=== PATIENT | male | born 1960 | race Caucasian/White ===

== ENCOUNTER 2018-01-05 16:53 | Emergency (ER) | payer OTHER ==
[~2018-01-05] VITALS: Ht 172.7 cm; Wt 75.8 kg
[2018-01-05 17:58] LABS: BASOPHILS ABSOLUTE AUTO 0.07 K/mm3 (0.00-0.23); BASOPHILS PERCENT AUTO 1 % (0-2); EOSINOPHILS PERCENT AUTO 1 % (0-6); Hematocrit 44.4 % (37.0-53.0); Hemoglobin 14.5 g/dL (13.5-17.5); IMMATURE GRAN ABSOLUTE AUTO 0.03 K/mm3 (0.00-0.10); IMMATURE GRAN PERCENT AUTO 0 % (0-1); LYMPHOCYTES ABSOLUTE AUTO 2.51 K/mm3 (0.84-5.20); LYMPHOCYTES PERCENT AUTO 25 % (21-46); MONOCYTES ABSOLUTE AUTO 0.73 K/mm3 (0.16-1.47); MONOCYTES PERCENT AUTO 7 % (4-13); Mean Corpuscular HGB 28.7 pg (26.0-34.0); Mean Corpuscular HGB Conc 32.7 g/dL (31.5-36.5); Mean Corpuscular Volume 88 fL (80-100); Mean Platelet Volume 11.1 fL (9.1-12.4); NEUTROPHILS ABSOLUTE AUTO 6.51 K/mm3 (1.96-9.15); NEUTROPHILS PERCENT AUTO 66 % (41-73); Platelet Count 201 K/mm3 (150-400); RDW Coefficient Variation 12.6 % (11.7-14.2); RDW Standard Deviation 40.4 fL (35.1-46.3); Red Blood Cell Count 5.06 M/mm3 (4.30-5.90); White Blood Cell Count 9.95 K/mm3 (4.00-11.30)
[2018-01-05 18:21] LABS: Alanine Aminotransfer (ALT/SGP 24 U/L (12-78); Albumin, Blood 4.2 g/dL (3.4-5.0); Albumin/Globulin Ratio 1.2 (0.8-1.8); Alk Phos 105 U/L (50-136); Anion Gap 10 mmol/L (6-16); Aspartate Aminotrans (AST/SGOT 26 U/L (12-37); Blood Urea Nitrogen 12 mg/dL (8-24); Bun/Creatinine Ratio 16.6 (12.0-20.0); CO2, Blood 24 mmol/L (21-32); Calcium, Blood 8.7 mg/dL (8.5-10.1); Chloride, Blood 106 mmol/L (98-108); Creatinine, Blood 0.72 mg/dL (0.60-1.20); Globulin, Blood 3.6 g/dL (2.2-4.0); Glomerular Filtration Rate >60 (60-); Glucose, Blood 131 mg/dL (70-99); Potassium, Blood 3.2 mmol/L (3.5-5.5); Salicylate <1.7 mg/dL (2.8-20.0); Sodium, Blood 140 mmol/L (136-145); Thyroxine (T4) 11.4 ug/dL (4.5-12.1); Total Protein, Blood 7.8 g/dL (6.4-8.2)
[2018-01-05 18:32] LABS: Acetaminophen, Random < 3.0 ug/mL (10.0-30.0); Ethanol (Alcohol), Blood, Med <3 mg/dL
[2018-01-05 19:22] LABS: Source, Urine Clean Catch
[2018-01-05 19:28] LABS: Bilirubin, Urine Neg (Neg); Blood, Urine Neg (Neg); Glucose Qualitative, Urine Neg (Neg); Ketones, Urine Neg (Neg); Leukocyte Esterase, Urine Neg (Neg); Nitrite, Urine Neg (Neg); Protein, Urine Neg (Neg); Specific Gravity, Urine 1.015 (1.003-1.022); Urobilinogen, Urine NORM (Normal)
[2018-01-05 19:33] LABS: Appearance, Urine Clear (Clear); Color, Urine Yellow (P-Yellow)
[2018-01-05] MEDS ORDERED: RANI150 PO (19:33)
[2018-01-05] MEDS ORDERED: GEMF600 PO (19:33)
[2018-01-05] MEDS ORDERED: Venlafaxine HCl50 MG PO (19:33)
[2018-01-05 19:40] LABS: U Amphetamine Screen Not Detected; U Barbituate Screen Not Detected; U Benzodiazapine Screen Not Detected; U Buprenorphine Screen Not Detected; U Cannabinoids Screen DETECTED; U Cocaine Screen Not Detected; U Methadone Screen Not Detected; U Methamphetamine Screen Not Detected; U Opiates Screen Not Detected; U Oxycodone Screen Not Detected; U Phencyclidine Screen Not Detected; U Propoxyphene Screen Not Detected
== END 2018-01-05 21:30 | disposition home or self-care (01) ==
LOC: ER 16:53
PROVIDERS: Emergency Medicine
DX: R41.82 Altered mental status, unspecified (principal); F17.200 Nicotine dependence, unspecified, uncomplicated; Z88.8 Allergy status to other drugs, medicaments and biological substances; Z79.899 Other long term (current) drug therapy
CPT/HCPCS: 36415; 70450; 80053; 81003; 84436; 84443; 85025; 99284; G0480

== ENCOUNTER → 2024-12-23 | Outpatient (CLI) | payer OTHER ==
[~2024-12-23] MED LIST: ARIP10 PO; GEMF600 PO; LORA2 PO; Venlafaxine HCl50 MG PO; Zantac150 MG PO
== END | disposition home or self-care (01) ==
LOC: LAB SHORT 08:10 → LAB 08:10
DX: L57.0 Actinic keratosis (principal); D49.2 Neoplasm of unspecified behavior of bone, soft tissue, and skin
CPT/HCPCS: 88305

== ENCOUNTER 2025-06-27 01:39 | Observation (INO) | payer MEDICARE, OTHER ==
[2025-06-27] VITALS (15 sets, daily range): BP systolic 107–140; BP diastolic 68–91
[~2025-06-27] VITALS: Ht 172.7 cm; Wt 89.4 kg
[~2025-06-27 01:39] MED LIST changes: +Heparin Sodium,Porcine 5,000 UNIT/0.5 ML SDV SC ONE
[2025-06-27] MEDS ORDERED: Heparin Sodium 5000 Units/ML 1ML MDV IV ONE (01:50)
[2025-06-27] MEDS ORDERED: NS 1,000 ML IV ONE ×3 (02:02→02:21)
[2025-06-27] MEDS ORDERED: OMEP20ER PO (02:10)
[2025-06-27] MEDS ORDERED: NS 250 ML IV ONE (02:15)
[2025-06-27] MEDS ORDERED: Heparin Sodium 1000 Units/ML 10ML MDV ONE (02:15)
[2025-06-27 02:19] LABS: Anion Gap 9.0 mmol/L (3-11); Blood Urea Nitrogen 20.0 mg/dL (8-24); CO2, Blood 26.0 mmol/L (21-32); Calcium, Blood 9.1 mg/dL (8.5-10.1); Chloride, Blood 105.0 mmol/L (98-108); Creatinine, Blood 1.29 mg/dL (0.60-1.20); Glucose, Blood 126.0 mg/dL (70-99); Magnesium, Blood 2.5 mg/dL (1.6-2.4); Potassium, Blood 3.9 mmol/L (3.5-5.5); Sodium, Blood 136.0 mmol/L (136-145)
[2025-06-27] MEDS ORDERED: FentaNYL Citrate 50 MCG/ML 2 ML Injection ONE (02:21)
[2025-06-27] MEDS ORDERED: Midazolam HCl 1MG / ML 2ML Vial ONE (02:21)
[2025-06-27 02:25] LABS: BASOPHILS ABSOLUTE AUTO 0.11 K/mm3 (0.00-0.23); BASOPHILS PERCENT AUTO 1 % (0-2); EOSINOPHILS ABSOLUTE AUTO 0.37 K/mm3 (0.00-0.68); EOSINOPHILS PERCENT AUTO 3 % (0-6); Hematocrit 51.4 % (37.0-53.0); Hemoglobin 16.5 g/dL (13.5-17.5); IMMATURE GRAN ABSOLUTE AUTO 0.04 K/mm3 (0.00-0.10); IMMATURE GRAN PERCENT AUTO 0 % (0-1); LYMPHOCYTES ABSOLUTE AUTO 3.02 K/mm3 (0.84-5.20); LYMPHOCYTES PERCENT AUTO 24 % (21-46); MONOCYTES ABSOLUTE AUTO 1.17 K/mm3 (0.16-1.47); MONOCYTES PERCENT AUTO 9 % (4-13); Mean Corpuscular HGB Conc 32.1 g/dL (31.5-36.5); Mean Corpuscular Volume 87 fL (80-100); NEUTROPHILS ABSOLUTE AUTO 8.14 K/mm3 (1.96-9.15); NEUTROPHILS PERCENT AUTO 63 % (41-73); NRBC ABSOLUTE 0.00 K/mm3 (0.00-0.02); NRBC Auto 0.0 /100 WBC (0.0-0.2); Platelet Count 220 K/mm3 (150-400); RDW Coefficient Variation 14.3 % (11.7-14.2); RDW Standard Deviation 46.0 fL (35.1-46.3)
[2025-06-27] MEDS ORDERED: Phenylephrine HCl 100 MCG/ML-NS 10MLSYR (1MG/10ML) ONE (02:28)
[2025-06-27 03:53] LABS: BASOPHILS ABSOLUTE AUTO 0.07 K/mm3 (0.00-0.23); BASOPHILS PERCENT AUTO 1 % (0-2); EOSINOPHILS ABSOLUTE AUTO 0.14 K/mm3 (0.00-0.68); EOSINOPHILS PERCENT AUTO 1 % (0-6); Hematocrit 45.7 % (37.0-53.0); Hemoglobin 14.6 g/dL (13.5-17.5); IMMATURE GRAN ABSOLUTE AUTO 0.05 K/mm3 (0.00-0.10); IMMATURE GRAN PERCENT AUTO 0 % (0-1); LYMPHOCYTES ABSOLUTE AUTO 1.16 K/mm3 (0.84-5.20); LYMPHOCYTES PERCENT AUTO 10 % (21-46); MONOCYTES ABSOLUTE AUTO 0.73 K/mm3 (0.16-1.47); MONOCYTES PERCENT AUTO 6 % (4-13); Mean Corpuscular HGB Conc 31.9 g/dL (31.5-36.5); Mean Corpuscular Volume 87 fL (80-100); NEUTROPHILS ABSOLUTE AUTO 10.08 K/mm3 (1.96-9.15); NEUTROPHILS PERCENT AUTO 82 % (41-73); NRBC ABSOLUTE 0.00 K/mm3 (0.00-0.02); NRBC Auto 0.0 /100 WBC (0.0-0.2); Platelet Count 188 K/mm3 (150-400); RDW Coefficient Variation 14.2 % (11.7-14.2); RDW Standard Deviation 45.2 fL (35.1-46.3)
[2025-06-27] MEDS ORDERED: NS 1,000 ML IV SCH (04:00)
[2025-06-27 04:19] LABS: Magnesium, Blood 2.1 mg/dL (1.6-2.4); Thyroid Stimulating Hormone 3.75 uIU/mL (0.360-4.800)
[2025-06-27 04:20] LABS: Alanine Aminotransfer (ALT/SGP 20.0 U/L (12-78); Albumin, Blood 3.2 g/dL (3.4-5.0); Albumin/Globulin Ratio 1.1 (0.8-1.8); Anion Gap 9.0 mmol/L (3-11); Aspartate Aminotrans (AST/SGOT 21.0 U/L (12-37); Bilirubin, Total 0.6 mg/dL (0.1-1.0); Blood Urea Nitrogen 18.0 mg/dL (8-24); CO2, Blood 24.0 mmol/L (21-32); Calcium, Blood 7.9 mg/dL (8.5-10.1); Chloride, Blood 109.0 mmol/L (98-108); Creatinine, Blood 1.06 mg/dL (0.60-1.20); Globulin, Blood 2.8 g/dL (2.2-4.0); Glucose, Blood 102.0 mg/dL (70-99); Potassium, Blood 3.6 mmol/L (3.5-5.5); Sodium, Blood 138.0 mmol/L (136-145); Total Protein, Blood 6.0 g/dL (6.4-8.2)
[2025-06-27 04:24] LABS: CHOL/HDL RATIO 5.8; Cholesterol 191 mg/dL (50-200); HDL Cholesterol 33 mg/dL (>39); LDL/HDL RATIO 4.4; Low Density Lipoprotein Chol 146 mg/dL (0-110); Triglycerides 59 mg/dL (30-160); Very Low Density Lipoprot Chol 11 mg/dL (6-32)
[2025-06-27] MEDS ORDERED: Enoxaparin 40 MG/0.4 ML SYR SC SCH (09:00)
[2025-06-27] MEDS ORDERED: ASPI81CH PO (13:52)
[2025-06-27] MEDS ORDERED: METO25 PO (13:53)
[2025-06-27] MEDS ORDERED: CLOP75 PO (13:53)
[2025-06-27] MEDS ORDERED: ATOR40TA PO (13:53)
--- NOTE | 2025-06-27 14:41 | NUR ---
PT DISCHARGED WITH ALL BELONGINGS, PAPERWORK, AND VERBALISES UNDERSTANDING OF DISCHARGE ORDERS. MEDS FAXED TO PT [facility]ARM[facility]. ESCORTED TO [facility].
== END 2025-06-27 14:45 | disposition home or self-care (01) ==
LOC: ER 01:39 → ICUE 01:40 → ER 02:49 → ICUE 03:08
PROVIDERS: Internal Medicine Interventional Cardiology; Student in an Organized Health Care Education/Training Program; ADMIT Emergency Medicine
DX: I21.19 ST elevation (STEMI) myocardial infarction involving other coronary artery of inferior wall (principal); I25.10 Atherosclerotic heart disease of native coronary artery without angina pectoris; N18.2 Chronic kidney disease, stage 2 (mild); E78.5 Hyperlipidemia, unspecified; Z95.5 Presence of coronary angioplasty implant and graft; Z87.891 Personal history of nicotine dependence; Z79.02 Long term (current) use of antithrombotics/antiplatelets; Z79.82 Long term (current) use of aspirin; Z79.899 Other long term (current) drug therapy; Z88.8 Allergy status to other drugs, medicaments and biological substances
CPT/HCPCS: 36415; 71045; 76937; 80048; 80053; 80061; 83036; 83735; 84443; 84484; 85025; 93005; 93010; 93306; 93454; 94762; 96374; 99152; 99153; 99285-25; A9270; C1760; C1769; C1874; C1887; C1894; C9606; J0461; J1644; J1650; J2250; J2371; J3010; J3246; J7030; J7050; Q9967

== ENCOUNTER 2025-08-14 15:39 | Emergency (ER) | payer MEDICARE, OTHER ==
[~2025-08-14] VITALS: Ht 172.7 cm; Wt 70.3 kg
[~2025-08-14 15:39] MED LIST changes: +ASPI81CH PO; +ATOR40TA PO; +CLOP75 PO; -Heparin Sodium,Porcine 5,000 UNIT/0.5 ML SDV SC ONE; +METO25 PO; +OMEP20ER PO
[2025-08-14 17:36] VITALS: BP 145/96
== END 2025-08-14 17:36 | disposition home or self-care (01) ==
LOC: ER 15:39
DX: I73.9 Peripheral vascular disease, unspecified (principal); F17.210 Nicotine dependence, cigarettes, uncomplicated; Z88.8 Allergy status to other drugs, medicaments and biological substances; Z79.82 Long term (current) use of aspirin; Z79.899 Other long term (current) drug therapy
CPT/HCPCS: 93926; 93971; 99283-25

== ENCOUNTER 2025-09-26 08:57 | Day surgery (SDC) | payer MEDICARE, OTHER ==
[~2025-09-26] VITALS: Ht 172.7 cm; Wt 71.0 kg
[2025-09-26] VITALS (14 sets, daily range): BP systolic 122–181; BP diastolic 71–123
[~2025-09-26 08:57] MED LIST changes: +BUPR150ER PO; +Budeprion Xl300 MG PO; +EZET10 PO; +KLONOPIN0.5 M3 PO; +LOSA25 PO; +METO25ER PO; +NITR.4SL SL; +REPATHA SY140 MG/1 M SQ; +REXULTI1 MG PO; +VITAMIN D31250 MC2 PO
--- NOTE | 2025-09-26 10:26 | NUR ---
DR HINOJOSA HERE TO SEE PT PRIOR TO PROCEDURE
[2025-09-26] MEDS ORDERED: NS 1,000 ML IV ONE ×2 (10:36→10:48)
[2025-09-26] MEDS ORDERED: Heparin Sodium 1000 Units/ML 10ML MDV ONE (10:36)
[2025-09-26] MEDS ORDERED: NS 250 ML IV ONE (10:37)
[2025-09-26] MEDS ORDERED: Midazolam HCl 1MG / ML 2ML Vial ONE (10:48)
[2025-09-26] MEDS ORDERED: FentaNYL Citrate 50 MCG/ML 2 ML Injection ONE (10:48)
--- NOTE | 2025-09-26 12:05 | NUR ---
LEFT GROIN SITE SOFT AND NONTENDER, NO HEMATOMA, NO BLEEDING
--- NOTE | 2025-09-26 14:17 | NUR ---
patient up to rest room and ambulated earlier now up at bedside to get dressed.
--- NOTE | 2025-09-26 14:30 | NUR ---
patient vebalized understanding of discharge instructions and precaution, no further questions. IV site dced with catheter intact, left groin site soft and nontender, no hematoma, no bleeding, dressing D&I.Patient discharged via wheel chair. son driving.
== END 2025-09-26 23:00 | disposition home or self-care (01) ==
LOC: MHTC 08:57
DX: I70.221 Atherosclerosis of native arteries of extremities with rest pain, right leg (principal); I25.10 Atherosclerotic heart disease of native coronary artery without angina pectoris; E78.5 Hyperlipidemia, unspecified; N18.9 Chronic kidney disease, unspecified; Z87.891 Personal history of nicotine dependence; Z88.8 Allergy status to other drugs, medicaments and biological substances; Z79.899 Other long term (current) drug therapy
CPT/HCPCS: 37227; 75625; 75716; 75774; 76937; 99152; 99153; C1714; C1725; C1760; C1769; C1874; C1887; C1894; C2623; J1644; J2250; J3010; J7030; J7050; Q9967